=== PATIENT | male | born 1935 | race Caucasian/White ===

== ENCOUNTER 2020-02-07 19:30 | Inpatient (IN) | payer MEDICARE ==
[~2020-02-07] VITALS: Ht 170.2 cm; Wt 71.2 kg
[~2020-02-07 19:30] MED LIST: BISA10SU4 PR; ENOX40SY4 SQ; GABA100C PO; METH750T2 PO; METH750T87 PO; OXYC-302 PO; SENN1TAB94 PO; TAMS-11 PO
--- NOTE | 2020-02-07 20:31 | NUR ---
Patient BIB [facility] from [facility] for approx 200 mL blood in urine. Patient had fofana in place but taken out at that facility prior to tranpsort. Patient is in [place] for rehab post spinal surgery. Since his surgery, patient is unable to move his left leg. Patient is in NAD. Respirations even and unlabored.
[2020-02-07 20:38] LABS: BASOPHILS # (AUTO) 0.06 x10^3/uL (0-0.1); BASOPHILS % (AUTO) 1 % (0-1); EOSINOPHILS # (AUTO) 0.17 x10^3/uL (0-0.4); EOSINOPHILS % (AUTO) 3 % (1-7); LYMPHOCYTES # (AUTO) 1.57 x10^3/uL (1-3.4); LYMPHOCYTES % (AUTO) 24 % (22-44); MD NO; MEAN CORPUSCULAR HEMOGLOBIN 32.2 pg (27.5-34.5); MEAN CORPUSCULAR HGB CONC 34.2 g/dL (33.2-36.2); MEAN CORPUSCULAR VOLUME 94.3 fL (81-97); MEAN PLATELET VOLUME 6.9 fL (7.4-10.4); MONOCYTES # (AUTO) 0.78 x10^3/uL (0.2-0.8); MONOCYTES % (AUTO) 12 % (2-9); NEUTROPHILS # (AUTO) 3.94 x10^3/uL (1.8-6.8); NEUTROPHILS % (AUTO) 60 % (42-75); PLATELET COUNT 266 x10^3/uL (130-400); RED BLOOD COUNT 3.55 x10^6/uL (4.38-5.82); RED CELL DISTRIBUTION WIDTH 13.4 % (9.4-14.8)
[2020-02-07 20:48] LABS: INTERNATIONAL NORMALIZED RATIO 0.92 (0.93-1.1); PROTHROMBIN TIME 9.7 Seconds (9.6-11.5)
[2020-02-07 20:50] LABS: ALANINE AMINOTRANSFERASE 44 U/L (12-78); ALBUMIN 2.5 g/dL (3.4-5.0); ANION GAP 5 mmol/L (5-15); CALCIUM 8.5 mg/dL (8.5-10.1); CHLORIDE 101 mmol/L (98-107)
[2020-02-07 20:53] LABS: ALKALINE PHOSPHATASE 83 U/L (45-117); BILIRUBIN,TOTAL 0.7 mg/dL (0.2-1.0); CREATININE 0.77 mg/dL (0.7-1.3); TOTAL PROTEIN 6.6 g/dL (6.4-8.2)
[2020-02-07 21:31] LABS: MICROSCOPIC INDICATED
[2020-02-07 21:33] LABS: CULTURE INDICATED? YES
[2020-02-07] MEDS ORDERED: LIDOCAINE 2%,20 ML JEL.PF.APP MM ONE ×2 (21:33→22:00)
--- NOTE | 2020-02-07 22:04 | NUR ---
This rn and primary rn at bedside to attempt cathx3 times. Not succesful. and pa made aware. Awaiting further orders.
--- NOTE | 2020-02-07 22:50 | NUR ---
Bladder scan performed. >999mL
[2020-02-08] MEDS ORDERED: PROPOFOL 10 MG/ML, 20ML ONE (00:09)
[2020-02-08] MEDS ORDERED: FENTANYL PF 100 MCG/2ML ONE (00:09)
[2020-02-08] MEDS ORDERED: ROCURONIUM 10MG/ML,5ML ONE (00:10)
[2020-02-08] MEDS ORDERED: DEXAMETHASONE 4 MG/ML, 1ML ONE (00:11)
[2020-02-08] MEDS ORDERED: LABETALOL 5MG/ML, 20ML IV PRN (00:30)
[2020-02-08] MEDS ORDERED: HYDROmorphone 2 MG/ML, 1ML IVPush PRN (00:30)
[2020-02-08] MEDS ORDERED: PROMETHAZINE 25 MG/ML, 1ML IV PRN (00:30)
[2020-02-08] MEDS ORDERED: OXYcodone 5 MG/5 ML ORAL.SOL UDC PO PRN (00:30)
[2020-02-08] MEDS ORDERED: CEFAZOLIN 1,000 MG ONE (00:30)
[2020-02-08] MEDS ORDERED: hydrALAzine 20 MG/ML, 1ML IV PRN (00:30)
[2020-02-08] MEDS ORDERED: ONDANSETRON 2MG/ML, 2ML IV PRN (00:30)
[2020-02-08] MEDS ORDERED: FENTANYL PF 100 MCG/2ML IV PRN (00:30)
[2020-02-08 02:24] VITALS: BP 135/81
[2020-02-08] MEDS ORDERED: ONDANSETRON ODT 4 MG PO PRN (02:30)
[2020-02-08] MEDS ORDERED: BISACODYL 10 MG SUPP PR PRN (02:30)
[2020-02-08] MEDS ORDERED: ONDANSETRON 2MG/ML, 2ML IVPush PRN (02:30)
[2020-02-08] MEDS ORDERED: POLYETHYLENE GLYCOL 17 GM PACKET PO PRN (02:30)
[2020-02-08] MEDS ORDERED: LABETALOL 5MG/ML, 20ML IVPush PRN (02:30)
[2020-02-08] MEDS ORDERED: ENALAPRILAT 1.25 MG/ML, 2ML IVPush PRN (02:30)
[2020-02-08] MEDS: OXYcodone IR 5MG TABLET PO PRN ×3 (03:09→20:48)
[2020-02-08] MEDS: ACETAMINOPHEN 325 MG TABLET PO PRN ×2 (03:10→16:46)
[2020-02-08] MEDS: CEFTRIAXONE PMX 1GM/50ML 50 ML IV SCH (03:10)
[2020-02-08 03:26] VITALS: BP 135/81
[2020-02-08 07:56] VITALS: BP 117/73
[2020-02-08] MEDS: SENNA/DOCUSATE TABLET PO SCH (08:25)
[2020-02-08] MEDS: GABAPENTIN 100 MG CAPSULE PO SCH ×3 (08:25→20:47)
[2020-02-08 13:57] VITALS: BP 104/66
[2020-02-08 19:49] VITALS: BP 100/59
[2020-02-08] MEDS: TAMSULOSIN 0.4 MG CAP.ER.24H PO SCH (20:47)
[2020-02-09 00:18] VITALS: BP 108/61
[2020-02-09] MEDS: OXYcodone IR 5MG TABLET PO PRN ×5 (00:35→20:47)
[2020-02-09] MEDS: CEFTRIAXONE PMX 1GM/50ML 50 ML IV SCH ×2 (02:04→02:52)
[2020-02-09 02:10] VITALS: BP 115/70
[2020-02-09] MEDS: METHOCARBAMOL 750 MG TABLET PO PRN ×3 (02:18→20:47)
[2020-02-09 04:19] VITALS: BP 120/73
[2020-02-09 05:30] LABS: CHLORIDE 105 mmol/L (98-107)
[2020-02-09 05:38] LABS: ALANINE AMINOTRANSFERASE 33 U/L (12-78); ALBUMIN 2.3 g/dL (3.4-5.0); ALKALINE PHOSPHATASE 66 U/L (45-117); ANION GAP 4 mmol/L (5-15); BILIRUBIN,TOTAL 0.6 mg/dL (0.2-1.0); CALCIUM 8.4 mg/dL (8.5-10.1); CREATININE 0.72 mg/dL (0.7-1.3)
[2020-02-09 05:39] LABS: BASOPHILS # (AUTO) 0.02 x10^3/uL (0-0.1); BASOPHILS % (AUTO) 0 % (0-1); EOSINOPHILS # (AUTO) 0.13 x10^3/uL (0-0.4); EOSINOPHILS % (AUTO) 2 % (1-7); LYMPHOCYTES # (AUTO) 1.92 x10^3/uL (1-3.4); LYMPHOCYTES % (AUTO) 28 % (22-44); MD NO; MEAN CORPUSCULAR HEMOGLOBIN 32.2 pg (27.5-34.5); MEAN CORPUSCULAR VOLUME 94.7 fL (81-97); MEAN PLATELET VOLUME 7.1 fL (7.4-10.4); MONOCYTES # (AUTO) 0.82 x10^3/uL (0.2-0.8); MONOCYTES % (AUTO) 12 % (2-9); NEUTROPHILS % (AUTO) 58 % (42-75); PLATELET COUNT 274 x10^3/uL (130-400); RED BLOOD COUNT 3.22 x10^6/uL (4.38-5.82); RED CELL DISTRIBUTION WIDTH 13.4 % (9.4-14.8)
[2020-02-09 07:05] VITALS: BP 105/53
[2020-02-09] MEDS: ACETAMINOPHEN 325 MG TABLET PO PRN (08:17)
[2020-02-09] MEDS: GABAPENTIN 100 MG CAPSULE PO SCH (08:17)
[2020-02-09] MEDS: SENNA/DOCUSATE TABLET PO SCH (08:17)
[2020-02-09] MEDS ORDERED: OXYcodone IR 5MG TABLET PO PRN (10:30)
[2020-02-09] MEDS: GABAPENTIN 400 MG CAPSULE PO SCH ×3 (10:30→20:47)
[2020-02-09 13:35] VITALS: BP 102/62
[2020-02-09] MEDS ORDERED: GABAPENTIN 100 MG CAPSULE PO SCH (16:00)
[2020-02-09 17:19] LABS: MICROSCOPIC AUTO
[2020-02-09 17:22] LABS: CULTURE INDICATED? YES
[2020-02-09 20:00] VITALS: BP 131/67
[2020-02-09] MEDS: TAMSULOSIN 0.4 MG CAP.ER.24H PO SCH (20:46)
[2020-02-09] MEDS: HYDROmorphone 1 MG/ML, 1ML INJ IM PRN (23:45)
[2020-02-10] MEDS: OXYcodone IR 5MG TABLET PO PRN ×3 (02:35→12:36)
[2020-02-10] MEDS: CEFTRIAXONE PMX 1GM/50ML 50 ML IV SCH (02:36)
[2020-02-10 02:43] VITALS: BP 107/66
[2020-02-10 06:38] VITALS: BP 105/57
[2020-02-10] MEDS: METHOCARBAMOL 750 MG TABLET PO PRN ×2 (06:42→16:07)
[2020-02-10] MEDS: SENNA/DOCUSATE TABLET PO SCH (08:04)
[2020-02-10] MEDS: GABAPENTIN 400 MG CAPSULE PO SCH ×2 (08:04→16:07)
[2020-02-10] MEDS: HYDROmorphone 1 MG/ML, 1ML INJ IM PRN (08:04)
[2020-02-10] MEDS ORDERED: GABA-827 PO (09:42)
[2020-02-10] MEDS ORDERED: OXYC5TAB3 PO (09:42)
[2020-02-10 13:30] VITALS: BP 130/75
[2020-02-10 15:24] VITALS: BP 109/73
== END 2020-02-10 16:55 | DRG 726 ==
LOC: ED 23:10 → EDIP 02-08 01:51 → 4NE 02-08 01:55
PROVIDERS: ADMIT Internal Medicine; ATTEND Family Medicine
PROC: 0TCB8ZZ Extirpation of Matter from Bladder, Via Natural or Artificial Opening Endoscopic (ICD-10-PCS; principal; 2020-02-08 00:30)
PROC: 0T9B70Z Drainage of Bladder with Drainage Device, Via Natural or Artificial Opening (ICD-10-PCS; 2020-02-09)
DX: N40.1 Benign prostatic hyperplasia with lower urinary tract symptoms (principal); E87.1 Hypo-osmolality and hyponatremia; R31.0 Gross hematuria; R33.8 Other retention of urine; G47.00 Insomnia, unspecified; N36.5 Urethral false passage; Z79.01 Long term (current) use of anticoagulants; Z82.49 Family history of ischemic heart disease and other diseases of the circulatory system; Z79.899 Other long term (current) drug therapy; Z88.0 Allergy status to penicillin
CPT/HCPCS: 36415; 80053; 81001; 85025; 85610; 85730; 87086; 99285; G0378; J0690; J0696; J1100; J1170; J2704; J3010

== ENCOUNTER 2020-03-28 07:24 | Emergency (ER) | payer MEDICARE ==
[~2020-03-28] VITALS: Ht 170.2 cm; Wt 72.0 kg
[~2020-03-28 07:24] MED LIST changes: +GABA-827 PO; +OXYC5TAB3 PO
[2020-03-28] MEDS ORDERED: SODIUM CHLORIDE 0.9% 1,000 ML IV ONE (07:33)
--- NOTE | 2020-03-28 07:46 | NUR ---
Pt BIB [facility] for bilat flank pain x2 days. Pt states hx of kidney stones as well as recent low back surgery in january. Pt was released from medical rehab x1 week ago. Pt given fent 100mcg and zofran 4mg IV [employer] by EMS, pt states pain well controlled. ERMD at bedside for assessment. Will follow orders.
[2020-03-28] MEDS ORDERED: SODIUM CHLORIDE 0.9% 1,000ML IVBOLUS ONE (08:00)
[2020-03-28] MEDS ORDERED: SODIUM CHLORIDE FLUSH 10ML SYR IVF ONE (08:00)
--- NOTE | 2020-03-28 08:00 | NUR ---
calixto sifuentes (daughter) [phone]
[2020-03-28 08:06] LABS: BASOPHILS # (AUTO) 0.04 x10^3/uL (0-0.1); BASOPHILS % (AUTO) 1 % (0-1); EOSINOPHILS # (AUTO) 0.15 x10^3/uL (0-0.4); EOSINOPHILS % (AUTO) 2 % (1-7); LYMPHOCYTES # (AUTO) 1.52 x10^3/uL (1-3.4); LYMPHOCYTES % (AUTO) 24 % (22-44); MD NO; MEAN CORPUSCULAR HEMOGLOBIN 30.1 pg (27.5-34.5); MEAN CORPUSCULAR HGB CONC 32.7 g/dL (33.2-36.2); MEAN CORPUSCULAR VOLUME 92.2 fL (81-97); MEAN PLATELET VOLUME 7.5 fL (7.4-10.4); MONOCYTES % (AUTO) 11 % (2-9); NEUTROPHILS # (AUTO) 4.06 x10^3/uL (1.8-6.8); NEUTROPHILS % (AUTO) 63 % (42-75); PLATELET COUNT 254 x10^3/uL (130-400); RED BLOOD COUNT 4.11 x10^6/uL (4.38-5.82); RED CELL DISTRIBUTION WIDTH 14.7 % (9.4-14.8)
[2020-03-28 08:12] LABS: MICROSCOPIC AUTO
[2020-03-28 08:15] LABS: CULTURE INDICATED? YES
[2020-03-28 08:29] LABS: ALBUMIN 3.3 g/dL (3.4-5.0); ANION GAP 7 mmol/L (5-15); CALCIUM 8.9 mg/dL (8.5-10.1); CHLORIDE 108 mmol/L (98-107)
[2020-03-28 08:30] LABS: ALANINE AMINOTRANSFERASE 20 U/L (12-78); CREATININE 0.65 mg/dL (0.7-1.3)
[2020-03-28 08:33] LABS: ALKALINE PHOSPHATASE 112 U/L (45-117); BILIRUBIN,TOTAL 0.3 mg/dL (0.2-1.0)
[2020-03-28] MEDS ORDERED: CEFTRIAXONE PMX 1GM/50ML 50 ML IV ONE (09:00)
[2020-03-28] MEDS ORDERED: CEFTRIAXONE PMX 1GM/50ML 50 ML ONE (09:20)
--- NOTE | 2020-03-28 09:25 | NUR ---
Pt medicated with IVABX per orders, per ERMD, no blood culture prior to administration. Pt to CT. Pt with loose stools in bed x1. Pt cleaned, sheets changed. Pt states pain level comfortable. Cont to monitor.
[2020-03-28] MEDS ORDERED: OMNIPAQUE 350 MG/ML, 100ML BOTTLE ONE (09:48)
--- NOTE | 2020-03-28 10:07 | NUR ---
Pt to CT.
--- NOTE | 2020-03-28 10:31 | NUR ---
Pt resting in bed, meal tray ordered. Pt to be D/C, will need a ride, pt lives in [place]. Pt is calling his friends for a ride, will follow up. Cont to monitor.
--- NOTE | 2020-03-28 11:42 | NUR ---
Pt with incont BM, pt cleaned, pt placed in adult diaper. Pt's friend to drive from [place] to pick pt up and take Pt home. Meal tray given. Pt remains on monitors, call light in reach. Will D/C when ride arrives.
--- NOTE | 2020-03-28 12:16 | NUR ---
Pt's ride here. Pt given new pants for D/C as pt's pants were soiled. Pt verbalizes understanding of D/C paperwork, has all own belongings upon D/C. Pt brought to friends vehicle in
[2020-03-28 12:17] VITALS: BP 132/87
== END 2020-03-28 12:19 | disposition home or self-care (01) ==
LOC: MERGE 08:02 → ED 08:02
DX: N30.00 Acute cystitis without hematuria (principal); G89.29 Other chronic pain
CPT/HCPCS: 36415; 74177; 80053; 81001; 83690; 85025; 87077; 87086; 96365; 99285; J0696; J7030; Q9967; 87186